=== PATIENT | female | born 1970 | race African-American/Black ===

== ENCOUNTER → 2016-09-21 | Outpatient (CLI) | payer BC ==
[2016-09-21 11:11] LABS: BASOPHILS % 1.5 % (0.0-2.0); EOSINOPHILS % 1.8 % (0.0-5.0); HEMOGLOBIN. 11.5 g/dL (12.0-16.0); LYMPHOCYTES % 51.7 % (20.0-50.0); MEAN CORPUSCULAR HEMOGLOBIN 30.5 pg (28.0-32.0); MEAN CORPUSCULAR VOLUME 87.5 fL (81.0-99.0); MEAN PLATELET VOLUME 9.3 fl (7.4-10.4); MONOCYTES % 5.5 % (2.0-8.0); NEUTROPHILS % 39.5 % (40.0-76.0); PLATELET 190 x1000/uL (130-400); RED BLOOD CELL COUNT 3.77 mill/uL (4.2-5.4); RED CELL DISTRIBUTION WIDTH 13.8 % (11.6-14.6)
[2016-09-21 11:31] LABS: CARBON DIOXIDE 28 mEq/L (21-32); CHLORIDE 101 mEq/L (98-107); HDL CHOLESTEROL 36 mg/dL (40-59); LDL CHOLESTEROL 124 mg/dL (5-100); T4 FREE 0.27 ng/dL (0.76-1.46)
[2016-09-22 09:06] LABS: FOLICLE STIMULATING HORMONE 1.6 mIU/mL (.); LUTEINIZING HORMONE 0.5 mIU/mL (.)
[2016-09-23 10:12] LABS: VITAMIN D 1-25 DIHYDROXY 27.4 pg/mL (19.9-79.3)
== END | disposition home or self-care (01) ==
LOC: LAB 10:39
PROVIDERS: ATTEND Internal Medicine
DX: I10 Essential (primary) hypertension (principal); E11.9 Type 2 diabetes mellitus without complications; E66.9 Obesity, unspecified
CPT/HCPCS: 36415; 80053; 80061; 82248; 82652; 83001; 83002; 83036; 84439; 84443; 85025

== ENCOUNTER → 2016-09-24 | Outpatient (CLI) | payer BC | END | disposition home or self-care (01) | LOC: EDUNIT# 09-16 15:09 → MAMMO 08:13 | PROVIDERS: ATTEND Internal Medicine | DX: Z12.31 Encounter for screening mammogram for malignant neoplasm of breast (principal); D25.9 Leiomyoma of uterus, unspecified | CPT/HCPCS: 76830; 76856; G0202 ==

== ENCOUNTER → 2017-04-05 | Outpatient (CLI) | payer BC ==
[2017-04-05 11:19] LABS: BASOPHILS % 0.6 % (0.0-2.0); EOSINOPHILS % 1.4 % (0.0-5.0); HEMATOCRIT. 32.7 % (36.0-48.0); HEMOGLOBIN. 11.4 g/dL (12.0-16.0); LYMPHOCYTES % 53.4 % (20.0-50.0); MEAN CORPUSCULAR HEMOGLOBIN 30.7 pg (28.0-32.0); MEAN CORPUSCULAR VOLUME 88.1 fL (81.0-99.0); MEAN PLATELET VOLUME 10.5 fl (7.4-10.4); MONOCYTES % 6.9 % (2.0-8.0); NEUTROPHILS % 37.7 % (40.0-76.0); PLATELET 188 x1000/uL (130-400); RED BLOOD CELL COUNT 3.71 mill/uL (4.2-5.4); RED CELL DISTRIBUTION WIDTH 13.3 % (11.6-14.6)
[2017-04-05 11:21] LABS: CLARITY URINE CLEAR (CLEAR); COLOR URINE YELLOW (YELLOW); KETONES URINE NEGATIVE (NEGATIVE); LEUKOCYTE ESTERASE URINE TRACE (NEGATIVE); NITRITE URINE NEGATIVE (NEGATIVE); OCCULT BLOOD URINE NEGATIVE (NEGATIVE); PROTEIN URINE NEGATIVE (NEGATIVE); SPECIFIC GRAVITY URINE 1.015 (1.005-1.030); UROBILINOGEN URINE 0.2 E.U./dL (0.2-1.0)
[2017-04-05 11:32] LABS: CHLORIDE 100 mEq/L (98-107)
[2017-04-05 11:48] LABS: HDL CHOLESTEROL 30 mg/dL (40-59); LDL CHOLESTEROL 82 mg/dL (5-100); T4 FREE 0.23 ng/dL (0.76-1.46)
[2017-04-06 13:07] LABS: *CREATININE RANDOM URINE 76.6 mg/dL (Not Estab.); MICROALBUMIN RANDOM URINE 63.5 ug/mL (Not Estab.)
== END | disposition home or self-care (01) ==
LOC: LAB 10:44
PROVIDERS: ATTEND Internal Medicine
DX: I10 Essential (primary) hypertension (principal); E11.9 Type 2 diabetes mellitus without complications; E66.9 Obesity, unspecified
CPT/HCPCS: 36415; 80053; 80061; 81003; 82043; 82248; 82570; 83036; 84439; 84443; 85025

== ENCOUNTER → 2017-05-07 | Outpatient (CLI) | payer BC | END | disposition home or self-care (01) | LOC: MAMMO 08:50 | PROVIDERS: ATTEND Internal Medicine | DX: D25.9 Leiomyoma of uterus, unspecified (principal) | CPT/HCPCS: 76830; 76856 ==

== ENCOUNTER → 2017-08-06 | Outpatient (CLI) | payer BC ==
[2017-08-06 08:35] LABS: BASOPHILS % 1.1 % (0.0-2.0); HEMATOCRIT. 34.6 % (36.0-48.0); LYMPHOCYTES % 44.5 % (20.0-50.0); MEAN CORPUSCULAR HEMOGLOBIN 30.7 pg (28.0-32.0); MEAN CORPUSCULAR VOLUME 88.6 fL (81.0-99.0); MEAN PLATELET VOLUME 9.5 fl (7.4-10.4); MONOCYTES % 6.1 % (2.0-8.0); NEUTROPHILS % 46.3 % (40.0-76.0); PLATELET 238 x1000/uL (130-400); RED CELL DISTRIBUTION WIDTH 13.4 % (11.6-14.6)
[2017-08-06 08:42] LABS: CLARITY URINE CLEAR (CLEAR); COLOR URINE YELLOW (YELLOW); KETONES URINE NEGATIVE (NEGATIVE); LEUKOCYTE ESTERASE URINE NEGATIVE (NEGATIVE); NITRITE URINE NEGATIVE (NEGATIVE); OCCULT BLOOD URINE NEGATIVE (NEGATIVE); PROTEIN URINE NEGATIVE (NEGATIVE); SPECIFIC GRAVITY URINE 1.011 (1.005-1.030); UROBILINOGEN URINE 0.2 E.U./dL (0.2-1.0)
[2017-08-06 09:10] LABS: CHLORIDE 106 mEq/L (98-107)
[2017-08-06 09:17] LABS: LDL CHOLESTEROL 137 mg/dL (5-100)
[2017-08-06 09:34] LABS: HDL CHOLESTEROL 31 mg/dL (40-59)
[2017-08-07 13:09] LABS: *CREATININE RANDOM URINE 75.5 mg/dL (Not Estab.); MICROALBUMIN RANDOM URINE 7.4 ug/mL (Not Estab.)
== END | disposition home or self-care (01) ==
LOC: LAB 07:46
PROVIDERS: ATTEND Internal Medicine
DX: I10 Essential (primary) hypertension (principal); E11.9 Type 2 diabetes mellitus without complications; E78.5 Hyperlipidemia, unspecified
CPT/HCPCS: 36415; 80053; 80061; 80076; 81003; 82043; 82570; 83036; 84442; 84443; 85025

== ENCOUNTER → 2017-08-10 | Outpatient (CLI) | payer BC | END | disposition home or self-care (01) | LOC: RAD 15:06 | PROVIDERS: ATTEND Internal Medicine | DX: M25.511 Pain in right shoulder (principal) | CPT/HCPCS: 73030 ==

== ENCOUNTER 2018-07-02 07:06 | Emergency (ER) | payer BC ==
[~2018-07-02] VITALS: Ht 180.3 cm; Wt 95.0 kg
[2018-07-02 07:38] VITALS: BP 143/87
== END 2018-07-02 09:43 | disposition home or self-care (01) ==
LOC: ER 07:06
DX: H61.23 Impacted cerumen, bilateral (principal); E11.9 Type 2 diabetes mellitus without complications
CPT/HCPCS: 69209; 99282

== ENCOUNTER 2018-09-30 08:34 | Emergency (ER) | payer BC ==
[~2018-09-30] VITALS: Ht 170.2 cm; Wt 95.0 kg
[2018-09-30] MEDS ORDERED: SODIUM CHLORIDE 0.9% 1,000 ML IV ONE (09:22)
[2018-09-30] MEDS ORDERED: KETOROLAC 30MG/ML VIAL IV STA (09:22)
[2018-09-30 10:54] LABS: CLARITY URINE CLEAR (CLEAR); COLOR URINE YELLOW (YELLOW); KETONES URINE NEGATIVE (NEGATIVE); LEUKOCYTE ESTERASE URINE 1+ (NEGATIVE); NITRITE URINE NEGATIVE (NEGATIVE); OCCULT BLOOD URINE NEGATIVE (NEGATIVE); PROTEIN URINE NEGATIVE (NEGATIVE); SPECIFIC GRAVITY URINE 1.004 (1.005-1.030); UROBILINOGEN URINE 0.2 E.U./dL (0.2-1.0)
[2018-09-30 11:16] LABS: CHLORIDE 106 mEq/L (98-107)
[2018-09-30 11:38] LABS: BASOPHILS % 0.8 % (0.0-2.0); EOSINOPHILS % 1.8 % (0.0-5.0); HEMATOCRIT. 33.7 % (36.0-48.0); LYMPHOCYTES % 36.8 % (20.0-50.0); MEAN CORPUSCULAR VOLUME 87.4 fL (81.0-99.0); MEAN PLATELET VOLUME 12.1 fl (7.4-10.4); NEUTROPHILS % 54.6 % (40.0-76.0); PLATELET 208 x1000/uL (130-400); RED BLOOD CELL COUNT 3.85 mill/uL (4.2-5.4); RED CELL DISTRIBUTION WIDTH 13.2 % (11.6-14.6)
[2018-09-30 11:47] LABS: HEMOGLOBIN. 11.6 g/dL (12.0-16.0)
[2018-09-30 11:50] LABS: MEAN CORPUSCULAR HEMOGLOBIN 30.1 pg (28.0-32.0)
[2018-09-30 11:54] VITALS: BP 122/76
== END 2018-09-30 11:54 | disposition home or self-care (01) ==
LOC: ER 08:34
DX: N12 Tubulo-interstitial nephritis, not specified as acute or chronic (principal); E11.9 Type 2 diabetes mellitus without complications
CPT/HCPCS: 36415; 80053; 81003; 85025; 87077; 87086; 87186; 96374; 99283; J1885; J7030

== ENCOUNTER → 2018-09-30 | Outpatient (CLI) | payer BC ==
[2018-09-30 08:34] LABS: BASOPHILS % 0.6 % (0.0-2.0); EOSINOPHILS % 1.8 % (0.0-5.0); LYMPHOCYTES % 35.1 % (20.0-50.0); MEAN CORPUSCULAR VOLUME 87.8 fL (81.0-99.0); MEAN PLATELET VOLUME 10.4 fl (7.4-10.4); NEUTROPHILS % 56.5 % (40.0-76.0); PLATELET 196 x1000/uL (130-400); RED BLOOD CELL COUNT 3.77 mill/uL (4.2-5.4); RED CELL DISTRIBUTION WIDTH 13.3 % (11.6-14.6)
[2018-09-30 09:20] LABS: HEMOGLOBIN. 11.6 g/dL (12.0-16.0)
[2018-09-30 09:21] LABS: MEAN CORPUSCULAR HEMOGLOBIN 30.7 pg (28.0-32.0)
[2018-09-30 09:30] LABS: CHLORIDE 103 mEq/L (98-107)
[2018-09-30 09:43] LABS: LDL CHOLESTEROL 83 mg/dL (5-100)
[2018-09-30 09:45] LABS: HDL CHOLESTEROL 20 mg/dL (40-59); TOTAL IRON BINDING CAPACITY 230 ug/dL (250-450)
[2018-09-30 09:47] LABS: T4 FREE 0.41 ng/dL (0.76-1.46)
[2018-10-01 13:10] LABS: *CREATININE RANDOM URINE 38.6 mg/dL (Not Estab.); MICROALBUMIN RANDOM URINE 16.6 ug/mL (Not Estab.)
== END | disposition home or self-care (01) ==
LOC: LAB 07:55
PROVIDERS: ATTEND Internal Medicine
DX: D64.9 Anemia, unspecified (principal); I10 Essential (primary) hypertension; E11.9 Type 2 diabetes mellitus without complications; E78.5 Hyperlipidemia, unspecified
CPT/HCPCS: 36415; 80061; 82043; 82248; 82570; 83036; 83540; 83550; 84439; 84443

== ENCOUNTER → 2019-03-28 | Outpatient (CLI) | payer BC ==
[2019-03-28 10:55] LABS: BASOPHILS % 1.3 % (0.0-2.0); EOSINOPHILS % 2.8 % (0.0-5.0); HEMATOCRIT. 33.8 % (36.0-48.0); HEMOGLOBIN. 12.1 g/dL (12.0-16.0); LYMPHOCYTES % 49.9 % (20.0-50.0); MEAN CORPUSCULAR HEMOGLOBIN 31.1 pg (28.0-32.0); MEAN CORPUSCULAR VOLUME 86.8 fL (81.0-99.0); MONOCYTES % 4.2 % (2.0-8.0); NEUTROPHILS % 41.8 % (40.0-76.0); PLATELET 204 x1000/uL (130-400); RED CELL DISTRIBUTION WIDTH 13.5 % (11.6-14.6)
[2019-03-28 11:20] LABS: CHLORIDE 101 mEq/L (98-107)
[2019-03-28 12:13] LABS: T4 FREE 0.38 ng/dL (0.76-1.46)
[2019-03-28 12:22] LABS: TOTAL IRON BINDING CAPACITY 213 ug/dL (250-450)
[2019-03-28 16:49] LABS: VITAMIN B12 SERUM 403 pg/mL (211-911)
[2019-03-28 16:56] LABS: FOLIC ACID (FOLATE) SERUM > 20.00 ng/mL (>5.38)
[2019-03-29 16:00] LABS: FERRITIN 666 ng/mL (10-291)
== END | disposition home or self-care (01) ==
LOC: LAB 10:20
PROVIDERS: ATTEND Specialist
DX: E11.9 Type 2 diabetes mellitus without complications (principal)
CPT/HCPCS: 36415; 80053; 82306; 82607; 82728; 82746; 83036; 83540; 83550; 84439; 84443; 84481; 85025

== ENCOUNTER → 2019-04-04 | Outpatient (CLI) | payer BC | END | disposition home or self-care (01) | LOC: CARD 08:15 | PROVIDERS: ATTEND Family Medicine Adult Medicine | DX: I10 Essential (primary) hypertension (principal); E11.9 Type 2 diabetes mellitus without complications; E78.5 Hyperlipidemia, unspecified; D64.9 Anemia, unspecified | CPT/HCPCS: 93017 ==

== ENCOUNTER → 2019-04-11 | Outpatient (CLI) | payer BC | END | disposition home or self-care (01) | LOC: MAMMO 08:46 | PROVIDERS: ATTEND Family Medicine Adult Medicine | DX: Z12.31 Encounter for screening mammogram for malignant neoplasm of breast (principal) | CPT/HCPCS: 77067 ==

== ENCOUNTER → 2019-10-17 | Outpatient (CLI) | payer BC ==
[2019-10-17 10:34] LABS: CHLORIDE 103 mEq/L (98-107)
[2019-10-17 10:40] LABS: LDL CHOLESTEROL 75 mg/dL (5-100)
[2019-10-17 10:41] LABS: TOTAL IRON BINDING CAPACITY 309 ug/dL (250-450)
[2019-10-17 10:42] LABS: HDL CHOLESTEROL 24 mg/dL (40-59)
[2019-10-17 10:44] LABS: T4 FREE 0.43 ng/dL (0.76-1.46)
[2019-10-17 11:04] LABS: BASOPHILS % 1.4 % (0.0-2.0); EOSINOPHILS % 2.3 % (0.0-5.0); HEMATOCRIT. 33.3 % (36.0-48.0); HEMOGLOBIN. 12.1 g/dL (12.0-16.0); LYMPHOCYTES % 42.3 % (20.0-50.0); MONOCYTES % 5.1 % (2.0-8.0); NEUTROPHILS % 48.9 % (40.0-76.0); PLATELET 192 x1000/uL (130-400); RED BLOOD CELL COUNT 3.79 mill/uL (4.2-5.4); RED CELL DISTRIBUTION WIDTH 13.5 % (11.6-14.6)
[2019-10-17 11:25] LABS: VITAMIN B12 SERUM 477 pg/mL (211-911)
[2019-10-17 11:29] LABS: FOLIC ACID (FOLATE) SERUM > 20.00 ng/mL (>5.38)
[2019-10-17 12:12] LABS: FERRITIN 730 ng/mL (10-291)
== END | disposition home or self-care (01) ==
LOC: LAB 09:37
PROVIDERS: ATTEND Specialist
DX: Z00.00 Encounter for general adult medical examination without abnormal findings (principal); E11.8 Type 2 diabetes mellitus with unspecified complications; D64.9 Anemia, unspecified
CPT/HCPCS: 36415; 80053; 80061; 82306; 82607; 82728; 82746; 83036; 83540; 83550; 84439; 84443; 84481; 85025

== ENCOUNTER 2020-02-03 15:54 | Emergency (ER) | payer BC ==
[~2020-02-03] VITALS: Ht 180.3 cm; Wt 102.9 kg
[2020-02-03 17:42] VITALS: BP 120/78
== END 2020-02-03 17:43 | disposition home or self-care (01) ==
LOC: ER 15:54
DX: U07.1 COVID-19 (principal); J06.9 Acute upper respiratory infection, unspecified; E11.9 Type 2 diabetes mellitus without complications; I10 Essential (primary) hypertension; E03.9 Hypothyroidism, unspecified
CPT/HCPCS: 71045; 99284; C9803; U0003

== ENCOUNTER → 2020-09-06 | Outpatient (CLI) | payer BC | END | disposition home or self-care (01) | LOC: MAMMO 09:59 | PROVIDERS: ATTEND Family Medicine Adult Medicine | DX: Z12.31 Encounter for screening mammogram for malignant neoplasm of breast (principal) | CPT/HCPCS: 77063; 77067 ==

== ENCOUNTER → 2021-03-03 | Outpatient (CLI) | payer OTHER | END | disposition home or self-care (01) | LOC: MRI 13:46 | PROVIDERS: ATTEND Family Medicine Adult Medicine | DX: S39.012A Strain of muscle, fascia and tendon of lower back, initial encounter (principal); M70.61 Trochanteric bursitis, right hip; M76.01 Gluteal tendinitis, right hip; X58.XXXA Exposure to other specified factors, initial encounter; Y92.89 Other specified places as the place of occurrence of the external cause; Y93.89 Activity, other specified; Y99.8 Other external cause status | CPT/HCPCS: 72195 ==

== ENCOUNTER → 2021-05-02 | Outpatient (CLI) | payer BC ==
[2021-05-02 08:05] LABS: BASOPHILS % 1.3 % (0.0-2.0); EOSINOPHILS % 1.8 % (0.0-5.0); HEMATOCRIT. 32.4 % (36.0-48.0); HEMOGLOBIN. 11.5 g/dL (12.0-16.0); LYMPHOCYTES % 47.8 % (20.0-50.0); MEAN CORPUSCULAR HEMOGLOBIN 30.7 pg (28.0-32.0); MEAN CORPUSCULAR VOLUME 86.5 fL (81.0-99.0); MONOCYTES % 5.4 % (2.0-8.0); NEUTROPHILS % 43.7 % (40.0-76.0); PLATELET 186 x1000/uL (130-400); RED BLOOD CELL COUNT 3.74 mill/uL (4.2-5.4); RED CELL DISTRIBUTION WIDTH 13.6 % (11.6-14.6)
[2021-05-02 08:21] LABS: LDL CHOLESTEROL 69 mg/dL (5-100)
[2021-05-02 08:23] LABS: HDL CHOLESTEROL 24 mg/dL (40-59)
[2021-05-02 08:31] LABS: CLARITY URINE CLEAR (CLEAR); COLOR URINE YELLOW (YELLOW); KETONES URINE NEGATIVE (NEGATIVE); LEUKOCYTE ESTERASE URINE 1+ (NEGATIVE); NITRITE URINE NEGATIVE (NEGATIVE); OCCULT BLOOD URINE NEGATIVE (NEGATIVE); PROTEIN URINE NEGATIVE (NEGATIVE); SPECIFIC GRAVITY URINE 1.009 (1.005-1.030); UROBILINOGEN URINE 0.2 E.U./dL (0.2-1.0)
[2021-05-02 08:40] LABS: CHLORIDE 107 mEq/L (98-107)
[2021-05-02 08:46] LABS: TOTAL IRON BINDING CAPACITY 279 ug/dL (250-450)
[2021-05-02 08:50] LABS: T4 FREE 0.37 ng/dL (0.76-1.46)
[2021-05-02 08:55] LABS: FOLIC ACID (FOLATE) SERUM > 20.00 ng/mL (>5.38)
[2021-05-02 12:44] LABS: FERRITIN 521 ng/mL (10-291)
== END | disposition home or self-care (01) ==
LOC: LAB 07:27
PROVIDERS: ATTEND Family Medicine Adult Medicine
DX: Z00.00 Encounter for general adult medical examination without abnormal findings (principal); E11.8 Type 2 diabetes mellitus with unspecified complications; I10 Essential (primary) hypertension; E55.9 Vitamin D deficiency, unspecified; D50.9 Iron deficiency anemia, unspecified
CPT/HCPCS: 36415; 80053; 80061; 81003; 82306; 82728; 82746; 83036; 83540; 83550; 84439; 84443; 84481; 85025; 87077; 87186

== ENCOUNTER → 2021-10-29 | Outpatient (CLI) | payer BC ==
[2021-10-29 08:06] LABS: BASOPHILS % 0.8 % (0.0-2.0); EOSINOPHILS % 2.3 % (0.0-5.0); HEMATOCRIT. 32.6 % (36.0-48.0); MEAN CORPUSCULAR VOLUME 88.9 fL (81.0-99.0); MEAN PLATELET VOLUME 10.1 fl (7.4-10.4); MONOCYTES % 6.1 % (2.0-8.0); NEUTROPHILS % 31.8 % (40.0-76.0); PLATELET 206 x1000/uL (130-400); RED BLOOD CELL COUNT 3.67 mill/uL (4.2-5.4); RED CELL DISTRIBUTION WIDTH 13.3 % (11.6-14.6)
[2021-10-29 09:00] LABS: CHLORIDE 102 mEq/L (98-107)
[2021-10-29 09:06] LABS: MEAN CORPUSCULAR HEMOGLOBIN 30.2 pg (28.0-32.0)
[2021-10-29 09:07] LABS: HEMOGLOBIN. 11.1 g/dL (12.0-16.0)
[2021-10-29 09:16] LABS: HDL CHOLESTEROL 18 mg/dL (40-59); LDL CHOLESTEROL 62 mg/dL (5-100); T4 FREE 0.35 ng/dL (0.76-1.46); TOTAL IRON BINDING CAPACITY 231 ug/dL (250-450)
[2021-10-29 09:29] LABS: VITAMIN B12 SERUM 422 pg/mL (211-911)
[2021-10-29 10:39] LABS: FOLIC ACID (FOLATE) SERUM > 20.00 ng/mL (>5.38)
[2021-10-29 14:36] LABS: FERRITIN 497 ng/mL (10-291)
== END | disposition home or self-care (01) ==
LOC: LAB 07:40
PROVIDERS: ATTEND Family Medicine Adult Medicine
DX: I10 Essential (primary) hypertension (principal); E78.5 Hyperlipidemia, unspecified; E11.8 Type 2 diabetes mellitus with unspecified complications; E07.9 Disorder of thyroid, unspecified
CPT/HCPCS: 36415; 80053; 80061; 82306; 82607; 82728; 82746; 83036; 83540; 83550; 84439; 84481; 85025

== ENCOUNTER 2021-12-01 10:12 | Emergency (ER) | payer BC ==
[~2021-12-01] VITALS: Ht 160 cm; Wt 91.0 kg
[2021-12-01 10:26] VITALS: BP 136/87
[2021-12-01 11:14] LABS: BASOPHILS % 0.6 % (0.0-2.0); EOSINOPHILS % 1.8 % (0.0-5.0); HEMATOCRIT. 33.2 % (36.0-48.0); HEMOGLOBIN. 11.7 g/dL (12.0-16.0); LYMPHOCYTES % 44.3 % (20.0-50.0); MEAN CORPUSCULAR HEMOGLOBIN 30.9 pg (28.0-32.0); MEAN CORPUSCULAR VOLUME 87.5 fL (81.0-99.0); MEAN PLATELET VOLUME 9.6 fl (7.4-10.4); MONOCYTES % 6.7 % (2.0-8.0); NEUTROPHILS % 46.6 % (40.0-76.0); PLATELET 218 x1000/uL (130-400)
[2021-12-01 11:21] LABS: CHLORIDE 104 mEq/L (98-107)
[2021-12-01 11:28] LABS: COLOR URINE PALE YELLOW (YELLOW)
[2021-12-01 11:29] LABS: CLARITY URINE CLEAR (CLEAR); KETONES URINE NEGATIVE (NEGATIVE); LEUKOCYTE ESTERASE URINE NEGATIVE (NEGATIVE); NITRITE URINE NEGATIVE (NEGATIVE); OCCULT BLOOD URINE NEGATIVE (NEGATIVE); PROTEIN URINE NEGATIVE (NEGATIVE); UROBILINOGEN URINE 0.2 E.U./dL (0.2-1.0)
[2021-12-01] MEDS ORDERED: METR-167 MT (12:59)
[2021-12-01] MEDS ORDERED: CIPR-263 MT (12:59)
== END 2021-12-01 13:15 | disposition home or self-care (01) ==
LOC: ER 10:24
DX: K52.9 Noninfective gastroenteritis and colitis, unspecified (principal); I10 Essential (primary) hypertension; E11.9 Type 2 diabetes mellitus without complications; E03.9 Hypothyroidism, unspecified
CPT/HCPCS: 36415; 74176; 80053; 81003; 81025; 85025; 93005; 99285

== ENCOUNTER → 2022-01-12 | Outpatient (CLI) | payer BC ==
[~2022-01-12] MED LIST: CIPR-263 MT; METR-167 MT
[2022-01-12 08:26] LABS: CHLORIDE 104 mEq/L (98-107)
[2022-01-12 08:28] LABS: BASOPHILS % 0.9 % (0.0-2.0); EOSINOPHILS % 2.2 % (0.0-5.0); HEMATOCRIT. 32.6 % (36.0-48.0); HEMOGLOBIN. 11.3 g/dL (12.0-16.0); LYMPHOCYTES % 52.1 % (20.0-50.0); MEAN CORPUSCULAR HEMOGLOBIN 30.8 pg (28.0-32.0); MEAN CORPUSCULAR VOLUME 88.8 fL (81.0-99.0); MEAN PLATELET VOLUME 10.1 fl (7.4-10.4); MONOCYTES % 6.4 % (2.0-8.0); NEUTROPHILS % 38.4 % (40.0-76.0); PLATELET 207 x1000/uL (130-400); RED BLOOD CELL COUNT 3.67 mill/uL (4.2-5.4); RED CELL DISTRIBUTION WIDTH 13.2 % (11.6-14.6)
[2022-01-12 08:49] LABS: HDL CHOLESTEROL 29 mg/dL (40-59); LDL CHOLESTEROL 81 mg/dL (5-100); T4 FREE 0.49 ng/dL (0.76-1.46); TOTAL IRON BINDING CAPACITY 274 ug/dL (250-450)
[2022-01-12 08:56] LABS: CLARITY URINE CLEAR (CLEAR); COLOR URINE YELLOW (YELLOW); KETONES URINE NEGATIVE (NEGATIVE); LEUKOCYTE ESTERASE URINE NEGATIVE (NEGATIVE); NITRITE URINE NEGATIVE (NEGATIVE); OCCULT BLOOD URINE NEGATIVE (NEGATIVE); PROTEIN URINE NEGATIVE (NEGATIVE); UROBILINOGEN URINE 0.2 E.U./dL (0.2-1.0)
[2022-01-12 09:10] LABS: VITAMIN B12 SERUM 531 pg/mL (211-911)
[2022-01-12 13:15] LABS: FOLIC ACID (FOLATE) SERUM > 20.00 ng/mL (>5.38)
[2022-01-12 17:28] LABS: FERRITIN 607 ng/mL (10-291)
== END | disposition home or self-care (01) ==
LOC: LAB 07:19
PROVIDERS: ATTEND Family Medicine Adult Medicine
DX: I10 Essential (primary) hypertension (principal); E55.9 Vitamin D deficiency, unspecified; D50.9 Iron deficiency anemia, unspecified; E11.8 Type 2 diabetes mellitus with unspecified complications; E78.5 Hyperlipidemia, unspecified; E07.9 Disorder of thyroid, unspecified
CPT/HCPCS: 36415; 80053; 80061; 81003; 82306; 82607; 82728; 82746; 83036; 83540; 83550; 84439; 84443; 84481; 85025

== ENCOUNTER → 2022-01-28 | Outpatient (CLI) | payer BC | END | disposition home or self-care (01) | LOC: MAMMO 08:03 | PROVIDERS: ATTEND Family Medicine Adult Medicine | DX: Z12.31 Encounter for screening mammogram for malignant neoplasm of breast (principal) | CPT/HCPCS: 77067 ==

== ENCOUNTER → 2022-02-25 | Outpatient (CLI) | payer OTHER | END | disposition home or self-care (01) | LOC: MRI 07:16 | DX: M48.07 Spinal stenosis, lumbosacral region (principal); M51.27 Other intervertebral disc displacement, lumbosacral region; M76.01 Gluteal tendinitis, right hip | CPT/HCPCS: 72148 ==

== ENCOUNTER 2022-09-14 09:16 | Emergency (ER) | payer BC, OTHER ==
[~2022-09-14] VITALS: Ht 172.7 cm; Wt 93.0 kg
[2022-09-14 09:32] VITALS: BP 157/80; PULSE 76; RESP 16; TEMP 98.5; O2SAT 98
[2022-09-14] MEDS ORDERED: CLIN-194 MT (10:14)
[2022-09-14] MEDS ORDERED: NAPR-1176 MT (10:14)
== END 2022-09-14 10:39 | disposition home or self-care (01) ==
LOC: ER 09:16
DX: S03.2XXA Dislocation of tooth, initial encounter (principal); K04.7 Periapical abscess without sinus; E11.9 Type 2 diabetes mellitus without complications; I10 Essential (primary) hypertension; W18.39XA Other fall on same level, initial encounter; Y93.89 Activity, other specified; Y92.89 Other specified places as the place of occurrence of the external cause; Y99.8 Other external cause status
CPT/HCPCS: 99283